=== PATIENT | male | born 1995 | race Caucasian/White ===

== ENCOUNTER 2023-09-10 15:43 | Outpatient (CLI) | payer OTHER, SELFPAY ==
[2023-09-10 16:24] LABS: PH Semen 8.5 (7.0-8.0); Sperm Count 6.6 mill/mL (40-160); Sperm Immotility 20 % (50-60); Sperm Non-Progressive Motility 10 % (5-10); Sperm Progressive Motility 70 % (31-34); Viscosity Semen Normal; Volume Semen 2.5 mL (2-5)
[2023-09-10 16:25] LABS: Pathology Referral Yes; White Blood Count Semen 0-4 /hpf
== END 2023-09-10 15:44 | disposition home or self-care (01) ==
LOC: LAB 15:44
PROVIDERS: PCP Nurse Practitioner Family; Visit Provider Nurse Practitioner Women's Health
DX: Z31.41 Encounter for fertility testing (principal); Z31.69 Encounter for other general counseling and advice on procreation
CPT/HCPCS: 80503; 89320

== ENCOUNTER → 2024-10-03 09:41 | Outpatient (BNVA) | payer OTHER, SELFPAY | PROVIDERS: PCP Nurse Practitioner Family; Visit Provider Nurse Practitioner Family | DX: G47.33 Obstructive sleep apnea (adult) (pediatric) (principal) | CPT/HCPCS: 80053; 80061; 84443; 85025 ==